=== PATIENT | male | born 1980 | race Caucasian/White ===

== ENCOUNTER 2022-02-03 07:14 | Outpatient (REF) | payer OTHER, SELFPAY ==
[2022-02-03 11:04] LABS: Hematocrit 44.8 % (42.0-52.0); Hemoglobin 15.6 g/dl (14.0-18.0); Mean Corpuscular HGB Conc 34.8 g/dl (31.0-36.0); Mean Corpuscular Hemoglobin 30.3 pg (27.0-33.0); Mean Platelet Volume 9.3 fL (9.4-12.4); Platelet Count 196 X10*3/uL (160-400); Red Blood Count 5.15 X10*6/uL (4.60-5.80); Red Cell Distribution Width 11.7 % (11.0-16.0); White Blood Count 6.3 X10*3/uL (4.8-10.8)
[2022-02-03 11:13] LABS: Estimated Average Glucose 163 mg/dL; Hemoglobin A1c % 7.3 %
[2022-02-03 11:43] LABS: Alanine Aminotransferase 21 U/L (0-40); Albumin Level 4.2 g/dL (3.5-5.0); Alkaline Phosphatase 67 U/L (39-117); Anion Gap 10 (12-20); Aspartate Amino Transferase 18 U/L (5-37); Bilirubin Total 0.7 mg/dL (0.0-1.0); Blood Urea Nitrogen 18 mg/dL (9-16); Calcium 8.7 mg/dL (8.4-10.2); Carbon Dioxide 31 mmol/L (22-29); Chloride 104 mmol/L (96-108); Cholesterol 160 mg/dL; Estimated Glomerular Filt Rate > 60; Glucose Fasting 114 mg/dL (60-99); HDL Cholesterol 43 mg/dL; LDL Cholesterol Calculated 102 mg/dl; Potassium 3.3 mmol/L (3.3-5.1); Sodium 142 mmol/L (135-145); Total Protein 6.6 g/dL (6.5-8.0); Triglycerides 76 mg/dL
[2022-02-03 12:15] LABS: Creatinine Urine 137.17 mg/dL; Microalbum/Creatinine Ratio Ur 4.3 ug/mg cr
== END 2022-02-03 07:15 | disposition home or self-care (01) ==
LOC: HO.WFDLDS 07:14
PROVIDERS: Visit Provider Internal Medicine
DX: Z00.00 Encounter for general adult medical examination without abnormal findings (principal); I10 Essential (primary) hypertension
CPT/HCPCS: 36415; 80053; 80061; 82043; 83036; 85027

== ENCOUNTER 2023-08-18 13:32 | Outpatient (AMB) | payer OTHER, SELFPAY ==
--- NOTE | 2023-08-18 13:33 | A.OFFPC_ITS ---
Vital Signs 08/18/23 13:34 Height 5 ft 11 in Weight 214 lb BMI 29.8 BP 118/74 Blood Pressure Location Rt brachial Position Sitting Pulse 75 Pulse Source Pulse Oximeter Pulse Oximetry (%) 96 Oxygen Delivery Method Room Air Intake Visit Reasons: PE Intake Note: Pt is here today for PE. Allergies No Known Allergies [No Known Allergies*] Allergy (Verified 08/18/23 13:36) Medication List - Last Reconciled 08/18/23 by Jaclyn Shelton MD blood sugar diagnostic As directed insulin lispro subcut olmesartan 5 mg PO DAILY Tobacco use date assessed: 08/18/23 Dental Screening Dental Screen Date: 08/18/23 Did you have a dental visit in the last 12 months?: Yes Did you have a dental problem in the last 6 months where you did not have access to dental care?: No Was dental information given to patient?: Patient has dentist HPI PE HPI Details Pt presents for PE. 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 [facility] Medical History Annual physical exam Glaucoma HTN (hypertension) IDDM (insulin dependent diabetes mellitus) Surgical History No pertinent past surgical history Family History Father No problems noted. Mother Diabetes mellitus Social History Housing: House Alcohol intake: never Patient Tobacco Use Status: Never used Tobacco e-Cigarette/Vaping Use: Never Used service: No Current occupational status: employed Cognitive needs: No Hearing needs: No Vision needs: Yes Questionnaire PHQ-9 Over the last 2 weeks, how often have you been bothered by any of the following problems? 1. Little interest or pleasure in doing things: not at all 2. Feeling down, depressed, or hopeless: not at all 3. Trouble falling or staying asleep, or sleeping too much: not at all 4. Feeling tired or having little energy: not at all 5. Poor appetite or overeating: not at all 6. Feeling bad about yourself - or that you are a failure or have let yourself or your family down: not at all 7. Trouble concentrating on things, such as reading the newspaper or watching television: not at all 8. Moving or speaking so slowly that other people could have noticed. Or the o pposite - being so fidgety or restless that you have been moving around a lot more than usual: not at all 9. Thoughts that you would be better off or of hurting yourself in some way: not at all Total score: 0 Depression Screening Interpretation: Negative Depression Screening Done: Yes Source: Developed by Drs. Freeman Laguerre, Vero Santoro, Murali Alva and colleagues, with an educational denis from [employer] Thrive Questionnaire Date Thrive assessed: 08/18/23 I am a: Patient What is your living situation today?: I have a steady place to live Within the past 12 months, did the food you bought not last and you didn't have the money to get more?: Never true Within the past 12 months, did you worry whether your food would run out before you got money to buy more?: Never true Do you have trouble paying for medicines?: No Do you have trouble getting transportation to medical appointments?: No Do you have trouble paying your heating and electricity bill?: No Do you have trouble taking care of your child, family member or friend?: No Do you have trouble with day-to-day activities such as bathing, preparing meals, shopping, managing finances, etc.?: No Are you currently unemployed and looking for a job?: No Are you interested in more education?: No Please select the resources that you would like help with: None THRIVE Score: 0 AUDIT C Alcohol Use Questionnaire (AUDIT-C) 1. How often do you have a drink containing alcohol?: Never 3. How often do you have six or more drinks on one occasion?: Never Total Score: 0 IND[place]-7 AMB Questionnaire INDIANA-7 Date [place] - 7 assessed: 08/18/23 Feeling nervous, anxious, or on edge: 0 = Not at all Not being able to stop or control worryin = Not at all Worrying too much about different things: 0 = Not at all Trouble relaxin = Not at all Being so restless that it is hard to sit still: 0 = Not at all Becoming easily annoyed or irritable: 0 = Not at all Feeling afraid as if something awful might happen: 0 = Not at all Total [place]-7 score (0-4 normal; 5-9 mild; 10-14 moderate; 15-21 severe): 0 Source: Developed by Drs. Freeman Laguerre, Vero Santoro, Murali Alva and colleagues, with an educational denis from [employer] Review of Systems Const All systems reviewed & are unremarkable except as noted in HPI and below Reports no additional complaints Eyes Reports no additional complaints ENT Reports no additional complaints Card Reports no additional complaints Resp Reports no additional complaints GI Reports no additional complaints Reports no additional complaints Physical exam (Primary Care) Vital Signs: Last Vital Signs Pulse 75 08/18/23 13:34 BP 118/74 08/18/23 13:34 Pulse Ox 96 08/18/23 13:34 Oxygen Delivery Method Room Air 08/18/23 13:34 BMI result Body Mass Index 29.8 Tobacco/Smoking Status: Tobacco use Status Tobacco use date assessed 08/18/23 08/18/23 13:39 Patient Tobacco Use Status Never used Tobacco 08/18/23 13:39 e-Cigarette/Vaping Use Never Used 08/18/23 13:39 PHQ-9: PHQ-9 Score PHQ-9: Total score 0 08/18/23 13:39 Depression Screening Interpretation: Negative Thrive Assessment: Date of Thrive Assessment Date Thrive assessed 08/18/23 08/18/23 13:39 Const General: no acute distress HENMT Head: Yes normal to inspection Ears: hearing grossly normal bilaterally Throat: Yes posterior oropharynx normal Eyes General: appearance normal, both eyes and all related structures Neck Neck: Yes no lymphadenopathy and Yes supple Resp Effort & Inspection: normal respiratory effort Auscultation: clear to auscultation bilaterally Cardio Rhythm: regular rhythm Heart sounds: S1 normal heart sound present and S2 normal heart sound present GI Inspection: Yes normal to inspection Palpation (GI): Soft to palpation Percussion: Yes normal to percussion Auscultation: normal bowel sounds Assessment and Plan Assessment & Plan (1) Shoulder pain, right: Code(s): M25.511 - Pain in right shoulder Plan: For chronic right shoulder pain patient will try physical therapy (2) IDDM (insulin dependent diabetes mellitus): Comment: on Insulin pump f/u dr. Griggs Plan: Follow-up with endocrinology at [facility] (3) HTN (hypertension): Code(s): I10 - Essential (primary) hypertension Plan: Continue olmesartan (4) Annual physical exam: Code(s): Z00.00 - Encounter for general adult medical examination without abnormal findings Plan: Well-balanced diet regular physical activity discussed with the patient he declined colonoscopy Orders: Orders Complete Blood Count Auto Diff 1 Year I10 - Essential (primary) hypertension, Z00.00 - Encounter for general adult medical examination without abnormal findings Hemoglobin A1c 1 Year I10 - Essential (primary) hypertension, Z00.00 - Encounter for general adult medical examination without abnormal findings PT Evaluation and Treatment Today M25.511 - Pain in right shoulder Comprehensive [place]. Panel Fast 1 Year I10 - Essential (primary) hypertension, Z00.00 - Encounter for general adult medical examination without abnormal findings Lipid Panel 1 Year I10 - Essential (primary) hypertension, Z00.00 - Encounter for general adult medical examination without abnormal findings Microalbumin, Random (w Creat) 1 Year I10 - Essential (primary) hypertension, Z00.00 - Encounter for general adult medical examination without abnormal findings UA CC w/rflx Micro + Cult 1 Year I10 - Essential (primary) hypertension, Z00.00 - Encounter for general adult medical examination without abnormal findings Coding Level of Care Code Est Pt Prev Care 40-64y(75672) Diagnoses Shoulder pain, right M25.511 IDDM (insulin dependent diabetes mellitus) HTN (hypertension) I10 Annual physical exam Z00.00
[2023-08-18 13:34] VITALS: BP 118/74; PULSE 75; O2SAT 96; BMI 29.8
== END 2023-08-18 14:34 | disposition home or self-care (01) ==
PROVIDERS: PCP Internal Medicine; Visit Provider Internal Medicine
DX: M25.511 Pain in right shoulder (principal); I10 Essential (primary) hypertension; Z00.00 Encounter for general adult medical examination without abnormal findings
CPT/HCPCS: 99396

== ENCOUNTER 2023-11-02 07:03 | Outpatient (RCR) | payer OTHER, SELFPAY ==
--- NOTE | 2023-10-12 08:18 | MHC.PT.EP ---
[facility] [place] Office [place] Office [place] Office [address] Leatha Banegas [address] [phone] F: [phone] F: [phone] F: [phone] F: [phone] Physical Therapy Plan of Care Date of Evaluation: 10/12/23 Date of Surgery: NA Diagnosis: R SHOULDER PAIN Assessment: Pt IS 43 YO M REFERRED TO PT FROM DR SEWELL WITH R SHLDER PAIN. Pt REPROTS 7-8 MONTH HX OF INSIDIOUS ONSET. 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 PRESENTS WITH POOR POSTURE, TIGHT PEC MMS, TTP R AC JT. SLIGHT DECREASE IN END ROM R SHLDER AND SLIGHT DECREASE IN R SHLDER MM STRENGTH. HAS NEVER HAD PT. SHOULD BENEFIT FROM PT TO HELP ADDRESS THESE ISSUES Frequency and Duration: The patient will be seen 2X/WK X 6 WKS Short Term Goals: 1. INCREASED POSTURE AWARENESS AND AWARENESS OF SHLDER CARE 2. 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 DECREASED R SHLDER PAIN AT LEAST 50% WITH ADLS 2. IMPROVED SPADI (60/130 SOC) Treatment Plan: Modalities to reduce pain, spasms and effusion. Manual therapy to restore motion and function. Therapeutic exercise to improve strength and flexibility. Neuromuscular re-education for posture and balance. Therapeutic activities to return to functional activities of daily living. Electronically signed by: ALTON TINOCO PT Please sign and return to therapist. Thank you for your referral.
--- NOTE | 2023-11-09 07:30 | MHC.PT.DC ---
[facility] [place] Office [place] Office [place] Office [address] Leatha Banegas [address] [phone] F: [phone] F: [phone] F: [phone] F: [phone] Physical Therapy Discharge Report Diagnosis: R SHOULDER PAIN Date of Surgery: NA Date of Evaluation: 10/12/23 Date of Discharge: 11/09/23 Treatments to Date: 5 Cancellations to Date: No Shows to Date: Discharge Status: Achieved Goals Improved Function Independent with HEP Discharge Summary: PER ASSESSMENT FROM LAST SESSION ON 11/02/23 HAS MET PT GOALS, HAS I HOME PROGRAM WILL SCHEDULE 1 APPT FOR NEXT WEEK. WILL CALL TO CX IF SHOULDER CONTINUES TO FEEL WELL' Pt CAME TO APPT ON 11/08 (MISUNDERSTOOD TO CALL TO CX IF SHLDER CONTINUES TO FEEL WELL). REPORTS SHOULDER CONTINUES TO FEEL WELL. OFFERED ONE LAST REV OF EXS VS CX.. WILL DC. RE-ED CONTINUATION OF EX (MAYBE TB VS PRONE) Electronically signed by: ALTON TINOCO PT Please sign and return to therapist. Thank you for your referral.
== END 2023-11-09 07:31 | disposition home or self-care (01) ==
LOC: HO.PTWFD 07:03
PROVIDERS: PCP Internal Medicine; Visit Provider Internal Medicine
DX: M25.511 Pain in right shoulder (principal)
CPT/HCPCS: 97110; 97140; 97161; 97535

== ENCOUNTER 2024-10-23 09:34 | Outpatient (AMB) | payer OTHER, SELFPAY ==
--- NOTE | 2024-10-23 09:46 | MHC.PC.OV ---
Vital Signs 10/23/24 09:47 Height 5 ft 11 in Weight 222 lb BMI 31.0 BP 120/74 Blood Pressure Location Lt brachial Position Sitting Respiration 18 Pulse 73 Pulse Source Pulse Oximeter Temp 98.7 F Temp Source Oral Pulse Oximetry (%) 97 Oxygen Delivery Method Room Air Intake Visit Reasons: Request a PE Intake Note: Pt is here today for PE. Allergies No Known Allergies (No Known Allergies*) Allergy (Verified 10/23/24 09:52) Medication List - Last Reconciled 10/23/24 by Jaclyn Shelton MD blood sugar diagnostic As directed insulin lispro subcut olmesartan 5 mg PO DAILY Tobacco use date assessed: 10/23/24 Dental Screening Dental Screen Date: 10/23/24 Did you have a dental visit in the last 12 months?: Yes Did you have a dental problem in the last 6 months where you did not have access to dental care?: No Was dental information given to patient?: Patient has dentist HPI Request a PE HPI Details Patient presents for physical [facility] Medical History Annual physical exam Glaucoma HTN (hypertension) IDDM (insulin dependent diabetes mellitus) Surgical History No pertinent past surgical history Family History Father No problems noted. Mother Diabetes mellitus Social History Housing: House Alcohol intake: never Patient Tobacco Use Status: Never used Tobacco e-Cigarette/Vaping Use: Never Used service: No Current occupational status: employed Cognitive needs: No Hearing needs: No Vision needs: Yes Questionnaire PHQ-9 Over the last 2 weeks, how often have you been bothered by any of the following problems? 1. Little interest or pleasure in doing things: not at all 2. Feeling down, depressed, or hopeless: not at all 3. Trouble falling or staying asleep, or sleeping too much: not at all 4. Feeling tired or having little energy: not at all 5. Poor appetite or overeating: not at all 6. Feeling bad about yourself - or that you are a failure or have let yourself or your family down: not at all 7. Trouble concentrating on things, such as reading the newspaper or watching television: not at all 8. Moving or speaking so slowly that other people could have noticed. Or the opposite - being so fidgety or restless that you have been moving around a lot more than usual: not at all 9. Thoughts that you would be better off or of hurting yourself in some way: not at all Total score: 0 Depression Screening Interpretation: Negative Depression Screening Done: Yes 65483 - PHQ-9 Billing: Yes Source: Developed by Drs. Freeman Laguerre, Vero Santoro, Murali Alva and colleagues, with an educational denis from [employer]. Thrive Questionnaire Date Thrive assessed: 10/23/24 I am a: Patient What is your living situation today?: I have a steady place to live Within the past 12 months, did the food you bought not last and you didn't have the money to get more?: Never true Within the past 12 months, did you worry whether your food would run out before you got money to buy more?: Never true Do you have trouble paying for medicines?: No Do you have trouble getting transportation to medical appointments?: No Do you have trouble paying your heating and electricity bill?: No Do you have trouble taking care of your child, family member or friend?: No Do you have trouble with day-to-day activities such as bathing, preparing meals, shopping, managing finances, etc.?: No Are you currently unemployed and looking for a job?: No Are you interested in more education?: No Please select the resources that you would like help with: None THRIVE Score: 0 INDIA[place]-7 AMB Questionnaire INDIA[place]-7 Date [place] - 7 assessed: 10/23/24 Feeling nervous, anxious, or on edge: 0 = Not at all Not being able to stop or control worryin = Not at all Worrying too much about different things: 0 = Not at all Trouble relaxin = Not at all Being so restless that it is hard to sit still: 0 = Not at all Becoming easily annoyed or irritable: 0 = Not at all Feeling afraid as if something awful might happen: 0 = Not at all Total [place]-7 score (0-4 normal; 5-9 mild; 10-14 moderate; 15-21 severe): 0 Source: Developed by Drs. Freeman Laguerre, Vero Santoro, Murali Alva and colleagues, with an educational denis from [employer]. [place]-7 Assessment Billing [place]-7 Assessment Tool: [place]-7 Assessment 14662 Review of Systems Const All systems reviewed & are unremarkable except as noted in HPI and below Eyes Reports no additional complaints ENT Reports no additional complaints Card Reports no additional complaints Resp Reports no additional complaints GI Reports no additional complaints Reports no additional complaints Physical exam (Primary Care) Vital Signs: Last Vital Signs Temp 98.7 F 10/23/24 09:47 Pulse 73 10/23/24 09:47 Resp 18 10/23/24 09:47 BP 120/74 10/23/24 09:47 Pulse Ox 97 10/23/24 09:47 Oxygen Delivery Method Room Air 10/23/24 09:47 BMI result Body Mass Index 31.0 Tobacco/Smoking Status: Tobacco use Status Tobacco use date assessed 10/23/24 10/23/24 09:55 Patient Tobacco Use Status Never used Tobacco 10/23/24 09:47 e-Cigarette/Vaping Use Never Used 10/23/24 09:47 PHQ-9: PHQ-9 Score PHQ-9: Total score 0 10/23/24 10:03 Depression Screening Interpretation: Negative Thrive Assessment: Date of Thrive Assessment Date Thrive assessed 10/23/24 10/23/24 09:55 Const General: no acute distress HENMT Head: Yes normal to inspection General nose exam: Normal external nose present Mouth: Normal oral and palatal mucosa present Throat: Yes posterior oropharynx normal Eyes General: appearance normal, both eyes and all related structures Neck Neck: Yes no lymphadenopathy and Yes supple Resp Effort & Inspection: normal respiratory effort Auscultation: clear to auscultation bilaterally Cardio Rhythm: regular rhythm Heart sounds: S1 normal heart sound present and S2 normal heart sound present GI Inspection: Yes normal to inspection Palpation (GI): Soft to palpation Percussion: Yes normal to percussion Auscultation: normal bowel sounds Coding Level of Care Code Est Pt Prev Care 40-64y(28203) Diagnoses HTN (hypertension) I10 IDDM (insulin dependent diabetes mellitus) Annual physical exam Z00.00 Additional Codes IND[place]-7 Assessment Billing - [place]-7 Assessment Tool: [place]-7 Assessment 11596 ([id number]) PHQ-9 - 76610 - PHQ-9 Billing: Yes ([id number]) Assessment & Plan Assessment & Plan (1) HTN (hypertension): Code(s): I10 - Essential (primary) hypertension Category: Medical Plan: Continue olmesartan (2) IDDM (insulin dependent diabetes mellitus): Comment: on Insulin pump f/u dr. Griggs Category: Medical Plan: A1c was 6.6. Follow-up with endocrinology continue current treatment and management. 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 He declined colonoscopy Cologuard is ordered Orders: Referrals Cologuard Test Z12.11 - Encounter for screening for malignant neoplasm of colon, Z12.12 - Encounter for screening for malignant neoplasm of rectum Medications: Refilled olmesartan 5 mg PO DAILY 90 tabs 3RF
[2024-10-23 09:47] VITALS: BP 120/74; PULSE 73; RESP 18; TEMP 37.1; O2SAT 97; BMI 31.0
--- OUTSIDE RECORDS SUMMARY | 2024-10-23 12:11 | XMS_ITS | Clinical Summary ---
Author Organization [facility] Address [address] [place] [phone] Phone Care Team Providers Care Hardboard Grinder Name Role Phone Jaclyn Shelton MD Primary Care Provider [phone] Allergies No known active allergies Medications olmesartan (BENICAR) 5 mg tablet Take 1 tablet by mouth every morning. 04/27/19 23 Active GUARDIAN SENSOR 3 DeviIndications: Type 1 diabetes mellitus without complication 1 each by Miscellaneous route every 7 days. 13 each 3 12/03/19 Active infusion set for insulin pump ISetIndications: Type 1 diabetes mellitus without complication 1 each by Miscellaneous route every third day. 30 each 3 12/03/19 23 Active insulin pump syringe 3 mL MiscIndications: Type 1 diabetes mellitus without complication by Miscellaneous route every third day. 30 each 3 12/03/19 23 Active SKIN PREP WIPES MiscIndications: Type 1 diabetes mellitus without complication To prep insulin infusion site and glucose sensor sites every 3 days 100 each 3 12/03/19 23 Active ketoconazole 2 % creamIndications :Type 1 diabetes mellitus without complication Apply topically daily. Apply to both feet daily 60 g 1 05/03/19 25 Active HUMALOG U-100 INSULIN 100 unit/mL injection vialIndications: Type 1 diabetes mellitus without complication Use 66 units daily subcutaneously continuously via insulin pump 70 mL 3 09/13/19 25 Active ACCU-CHEK GUIDE TEST STRIPS Strp strips Use daily as needed to recheck CGM reading 100 strip 3 09/13/19 25 Active lancets 28 gauge MiscIndications: Type 1 diabetes mellitus without complication 1 each by Miscellaneous route daily. 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 Daughter diagnosed with type I at age 9 and son diagnosed with type I at age 17 Assessment & Plan (09/12/2024 9:18 AM EDT): Good control by last A1c of 6.5% in 04/2024. Recent control is suboptimal by sensor download with 64% in target, 25% high and 9% over 250 and 2% low. No severe hypoglycemia. Hyperglycemia usually related to carbohydrate intake. Patient admits that at times tends to underestimate his carb intake. He is current insulin to carb ratio for breakfast is 1: 7 and for lunch and dinner is 1: 10. He has slightly decreased vibratory sensation on his feet without any symptoms. B12 level and CBC is not available. His urine microalbumin creatinine ratio was normal and lipids at target in 04/2024. Up-to-date with eye exam, report from 01/2024 reviewed, no diabetic retinopathy. Some lipo hypertrophy on abdominal infusion sites. -Discussed increasing meal boluses with lunch and dinner by changing the insulin to carb ratio to 1: 8 or 1: 9. -Continue to work on accuracy of carb counting -Check labs today including B12 level and CBC -Discussed importance to rotate infusion sites Assessment & Plan (05/02/2024 8:41 AM EDT): Control is good based upon the patient's insulin pump and sensor download. No frequent or severe hypoglycemia. He is having some post prandial glucose spikes after dinner. Discussed adjusting his carb ratio at dinner but he would rather leave it as to help prevent going low over night. Will maintain his current pump settings. Continue to work on eating healthy and being active. To call or message with any issues managing his glucose levels. Up to date with [facility]. He has been dealing with athlete's feet for the last couple of weeks, will send a prescription to treat. Labs ordered today Assessment & Plan (02/11/2024 6:31 PM EST): Has been using automated insulin delivery with MiniMed 780G/Guardian CGM since 10/2023. Improved control by CGM download. No frequent or severe hypoglycemia. Average glucose 164, GMI 7.2. Spent 60% of the day in target range. Postprandial highs after lunch and dinner while using insulin carb ratio 1:10 with these meals. Breakfast insulin to carb ratio is 1:7. No long-term complications -Increase meal bolus at lunch and dinner by using an insulin to carb ratio 127. -If having hypoglycemia within 2 to 3 hours after lunch/dinner, he may change the insulin to carb ratio to 1-8 or 1-9 -Fasting labs end of February. -Follow-up in 3 to 4 months with [facility] and 6 to 7 months with sd Assessment & Plan (11/29/2023 8:46 AM EDT): Control is improving/good based upon the patient's insulin pump and sensor download. No frequent or severe hypoglycemia. He is having some lows during the over night period, will lower his 12 am basal rate to 0.9 units per hour to help prevent the lows. He is very happy with his new insulin pump and how it is working. Continue to work on eating healthy and being active. To call or message with any issues managing his glucose levels. Up to date with [facility]. Scheduled to see in January. Labs ordered today Assessment & Plan (07/31/2023 10:18 PM EDT): Suboptimal control by MiniMed 670 G and Guardian CGM download. Last A1c higher at 7.7% in 04/2023. Blood sugars are going up between 3 AM to 6 AM and has postprandial spikes especially mid afternoon and after dinner while using insulin to carb ratio 1:10 at lunch and dinner. Patient is usually entering less carbs than what he eats because of fear of hypoglycemia at work. Suggested to increase 3 AM to 6 AM basal by 0.1 unit/h. Discussed the importance of entering the actual carbohydrate he eats and bolus for it. If he is having low blood sugars within 2 to 3 hours after lunch or dinner he may change the insulin to carb ratio to 1-12 or 1-13 from current 1-10. Patient will need a new pump since current pump is cracked. His insurance covers both MiniMed and tandem. He had problem with current supplier [employer] to facilitate the switch to tandem. He will call [employer] again with his choice of pump and we will send prescription. He is more used to the MiniMed platform so he may upgrade to their newest 780 G pump with Guardian 4 CGM Assessment & Plan (04/25/2023 2:38 PM EDT): Control is reasonable based upon the patient's insulin pump and sensor download. No frequent or severe hypoglycemia. His glucose levels have been spiking after lunch and dinner discussed changing his insulin to carb ratio at 11 am to 1:8 from 1:10 to help with the post prandial spikes. Dicussed differences between the medtronic pump and the tandem insulin pump as he is getting ready to up grade his pump. He is thinking he is going to work on changing his pump and sensor from medtronic to tandem and dexcom. Continue to work on eating healthy and being active. To call or message with any issues managing his glucose levels. Up to date with [facility]. Labs ordered today Assessment & Plan (01/19/2023 9:09 AM EST): Suboptimal control by CGM download. Average glucose 180. Reports some hypoglycemia overnight. Does get sharp decline in his blood sugars within 2 to 3 hours postprandially while using insulin to carb ratio of 129 during the day and at night. No severe hypoglycemia. Having issues to get supplies of pump and sensor after insurance changed to [employer]. He would need to use [email or web address] as a supplier and considering to change his MiniMed pump to either OmniPod or t:slim. He will let us know which pump to send prescription on and will set up training. Suggested to decrease medial bolus by changing the insulin to carb ratio to 1-10 or 1-11 between 11 AM -midnight. Labs today. Will communicate through [place]. Reviewed symptoms, prevention and treatment of hypoglycemia. Call if blood sugars below 70 or over 250-300 sustained. Assessment & Plan (07/13/2022 10:12 AM EDT): Control is reasonable based upon the patient's recent A1C of 7.8%, and his insulin pump and sensor downloads. No frequent or severe hypoglycemia. Discussed upgrading his insulin pump from the 670G to the 780G and guardian 4 sensors. He is going to look into this. Will go to the website to start the process. Will maintain his current settings as control is overall doing well. Continue to work on eating healthy and being active. To call or message with any issues managing his glucose levels. Up to date with [facility]. Insulin pump in place 07/13/2022 Assessment & Plan (09/12/2024 9:18 AM EDT): On MiniMed 7 80G with Guardian 4 sensor. Getting supplies from [facility] Assessment & Plan (05/02/2024 8:40 AM EDT): Using the medtronic 780 insulin pump and guardian 4 sensor, he is getting supplies from [employer] Assessment & Plan (01/18/2024 9:50 AM EST): Patient changed his supplier to [facility]. Assessment & Plan (11/29/2023 8:45 AM EDT): Using the medtronic 780 insulin pump and guardian 4 sensor, he is getting supplies from [employer] Assessment & Plan (04/25/2023 2:31 PM EDT): He is considering switching his insulin pump to the tandem insulin pump from the medtronic pump. He does not want to use the omnipod pump Assessment & Plan (01/19/2023 9:09 AM EST): Current insurance does not deal with [employer] work he is current supplier is. He will need to use [facility]. Assessment & Plan (07/13/2022 10:07 AM EDT): The patient is using the medtroniv 670G insulin pump and guardian 3 sensors, he is getting his supplies from [employer] Encounters Date Type Department Care Team Description 09/12/2024 9:04 AM EDT - 09/12/2024 11:59 PM EDT Hospital Encounter [facility] [address] [place] [address] Destiny Mejía MD Discharge Disposition: Home or Self Care 09/12/2024 8:40 AM EDT Office Visit [facility] [address] [place] [address] Destiny Mejía MD Type 1 diabetes mellitus without complication (Primary Dx); Insulin pump in place; 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 Not on steph e 07/06/2022 Are you concerned about learning? Not on file 07/06/2022 No 07/06/2022 No 07/06/2022 Digital Access Answer Date Recorded No 07/06/2022 No 07/06/2022 Reliable internet access at home? Not on file 07/06/2022 Device with a working camera? Not on file Sex and Gender Information Value Date Recorded Sex Assigned at Not on file Legal Sex Male 9:05 AM EDT Gender Identity Not on file Sexual Orientation Not on file Last Filed Vital Signs Vital Sign Reading Time Taken Comments Blood Pressure 116/76 09/12/2024 8:34 AM EDT Pulse 71 09/12/2024 8:34 AM EDT Temperature 36.4 C (97.5 F) 04/22/2023 7:59 AM EDT Respiratory Rate - - Oxygen Saturation 98% 09/12/2024 8:34 AM EDT Inhaled Oxygen Concentration - - Weight 101.2 kg (223 lb 3.2 oz) 09/12/2024 8:34 AM EDT Height 180.3 cm (5' 10.98 ) 09/12/2024 8:34 AM E DT Body Mass Index 31.14 09/12/2024 8:34 AM EDT Plan of Treatment Upcoming Encounters Date Type Department Care Team (Late st Contact Info) Description 12/12/2024 8:00 AM EST Office Visit [facility] [address] [place] [address] [place] [address] Agatha Elliott PA-C [address] [place] [phone] 03/19/2025 8:20 AM EST Office Visit [facility] [address] [place] [address] [place] [address] Destiny Mejía MD [address] [place] [phone] [email or web address] Health Maintenance Due Date Last Done Comments Adult Td,Tdap Booster 1978 DEPRESSION SCREENING 1990 HEPATITIS C SCREENING 1996 HIV ONE-TIME SCREENING (18-65 YEARS) 1996 PNEUMOCOCCAL VACCINES (0-49 years) (1 of 2 - PCV) 1997 DIABETIC EYE EXAM 07/13/2022 COLOGUARD 09/05/2023 COLONOSCOPY 09/05/2023 COLORECTAL CANCER SCREENING 09/05/2023 FIT TEST 09/05/2023 FOBT 09/05/2023 SIGMOIDOSCOPY 09/05/2023 VIRTUAL COLONOSCOPY 09/05/2023 INFLUENZA VACCINE (#1) 2024 COVID-19 VACCINE (1 - season) 2024 BLOOD PRESSURE 03/15/2025 09/12/2024 HEMOGLOBIN A1C 03/15/2025 09/12/2024, 04/08, 11/29/2023, Additional history exists CREATININE LEVEL 09/12/2025 09/12/2024, , 11/29/2023, Additional history exists LIPID PANEL 09/12/2025 09/12/2024, 04/08, 01/19/2023 POTASSIUM LEVEL 09/12/2025 09/12/2024, 04/08, 11/29/2023, Additional history exists SMOKING STATUS SCREENING (Once After 26 Yrs) Completed 09/12/2024 HEPATITIS A VACCINES Aged Out No long er eligible based on patient's age to complete this topic HIB VACCINES Aged Out No longer eligi ble based on patient's age to complete this topic MENINGOCOCCAL VACCINES (ACWY) Aged Out No longer eligible based on patient's age to complete this topic MENINGOCOCCAL VACCINES (B) Aged Out N o longer eligible based on patient's age to complete this topic Medical Devices Not on file Procedures Procedure Name Priority Date/Time Associated Diagnosis Comments MICROALBUMIN/CREATINI NE RATIO, RANDOM URINE Routine 09/12/2024 9:13 AM EDT Type 1 diabetes mellitus without complication VITAMIN B12 Routine 09/12/2024 9:06 AM EDT Type 1 diabetes mellitus without complication CBC Routine 09/12/2024 9:06 AM EDT Type 1 diabetes mellitus without complication HEMOGLOBIN A1C Routine 09/12/2024 9:06 AM EDT Type 1 diabetes mellitus without complication COMPREHENSIVE METABOLIC PANEL Routine 09/12/2024 9:06 AM EDT Type 1 diabetes mellitus without complication LIPID PANEL Routine 09/12/2024 9:06 AM EDT Type 1 diabetes mellitus without complication TSH WITH REFLEX Routine 09/12/2024 9:06 AM EDT Type 1 diabetes mellitus without complication from Last 3 Months Results * Microalbumin/creatinine ratio, random urine (09/12/2024 9:13 AM EDT) URINE MICROALBUMIN <1.2 0 - 2.3 mg/dL [facility] URINE CREATININE 215 mg/dL [facility] MICROALB/CRE RATIO NOT CALCULATED 0 - 20 mg/g Cre [facility] Comment:due to Microalbumin <1.2 Urine (Urine) 09/12/2024 9:1 3 AM EDT 09/12/2024 9:18 AM EDT us Destiny Mejía MD URINE ORDERABLES Final Result Performing Organization Address City/[facility]/ZIP Co de Phone Number [address] [address] * (ABNORMAL) Comprehensive metabolic panel (09/12/2024 9:06 AM EDT) SODIUM 144 133 - 146 mmol/L [facility] POTASSIUM 4.9 3.3 - 5.1 mmol/L [facility] CHLORIDE 106 96 - 108 mmol/L [facility] CO2 27 21 - 35 mmol/L [facility] BUN 19 6 - 19 mg/dL [facility] CREATININE 0.80 0.5 - 1.5 mg/dL [facility] GLUCOSE 188(H) 70 - 99 mg/dL [facility] ALBUMIN 4.1 3.9 - 4.8 g/dL [facility] TOTAL PROTEIN 6.8 6.5 - 8.0 g/dL [facility] CALCIUM 8.7 8.4 - 10.3 mg/dL [facility] ALKALINE PHOSPHATASE 67 39 - 117 U/L [facility] TOTAL BILIRUBIN 0.7 0.0 - 1.2 mg/dL [facility] AST 24 0 - 37 U/L [facility] ALT 24 0 - 40 U/L [facility] GLOBULIN 2.7 1 - 4.8 g/dL [facility] EGFR 111 >59 mL/min/1.7 3m2 [facility] Comment:Estimated glomerular filtration rate calculated using the CKD-EPI refit equation. ANION GAP 16 10 - 20 mmol/L [facility] Blood 09/12/2024 9:06 AM EDT 09/12/2024 9:12 AM EDT us Destiny Mejía MD LAB BLOOD ORDERABLES Final Res ult Performing Organization Address City/[facility]/ZIP Co de Phone Number [address] [address] * TSH with reflex (09/12/2024 9:06 AM EDT) TSH 0.78 0.27 - 4.20 uIU/mL [facility] Blood 09/12/2024 9:06 AM EDT 09/12/2024 9:12 AM EDT us Destiny Mejía MD LAB BLOOD ORDERABLES Final Res ult Performing Organization Address City/[facility]/ZIP Co de Phone Number [address] [phone] * CBC (09/12/2024 9:06 AM EDT) WBC 5.09 4.00 - 11.00 K/uL [facility] RBC 4.93 4.50 - 5.90 M/uL [facility] HGB 14.7 13.5 - 17.5 g/dL [facility] HCT 43.2 41.0 - 53.0 % [facility] PLT 173 150 - 450 K/uL [facility] MCV 87.6 80.0 - 100.0 fL [facility] MCH 29.8 27.0 - 31.0 pg [facility] MCHC 34.0 32.0 - 36.0 g/dL [facility] RDW 11.6 11.5 - 14.5 % [facility] MPV 9.3 8.4 - 12.0 fL [facility] NRBC 0.00 0.00 /100 WBCs [facility] ABSOLUTE NRBC 0.00 0.00 K/uL [facility] Blood 09/12/2024 9:06 AM EDT 09/12/2024 9:12 AM EDT us Destiny Mejía MD LAB BLOOD ORDERABLES Final Res ult Performing Organization Address [facility]/ZIP Co de Phone Number [address] [address] * (ABNORMAL) Hemoglobin A1c (09/12/2024 9:06 AM EDT) HEMOGLOBIN A1C 6.8(H) 4.3 - 5.8 % [facility] Blood 09/12/2024 9:06 AM EDT 09/12/2024 9:12 AM EDT us Destiny Mejía MD LAB BLOOD ORDERABLES Final Res ult Performing Organization Address City/[facility]/ZIP Co de Phone Number [address] [address] * Vitamin B12 (09/12/2024 9:06 AM EDT) VITAMIN B12 618 232 - 1,245 pg/mL [facility] Blood 09/12/2024 9:06 AM EDT 09/12/2024 9:12 AM EDT us Destiny Mejía MD LAB BLOOD ORDERABLES Final Res ult Performing Organization Address City/[facility] Co de Phone Number [address] [phone] * (ABNORMAL) Lipid panel (09/12/2024 9:06 AM EDT) HDL 49 mg/dL [facility] Comment: Interpretation <40 mg/dL: Low HDL cholesterol (major risk factor for CHD) Greater than or equal to 60 mg/dL: High HDL cholesterol ( negative risk factor for CHD) HDL - cholesterol is affected by a number of factors, e.g. smoking, excerise, hormones, sex and age. CHOLESTEROL 159 0 - 240 mg/dL [facility] TRIGLYCERIDES 73 30 - 160 mg/dL [facility] LDL 95 50 - 129 mg/dL [facility] Comment: LDL levels in terms of risk for coronary heart disease: <100 mg/dL: Optimal 100-129 mg/dL: Near or above optimal 130-159 mg/dL: Borderline high 160-189 mg/dL: High >190 mg/dL: Very High CARDIAC RISK RATIO 3.2(L) 3.4 - 5.0 C [facility] Blood 09/12/2024 9:06 AM EDT 09/12/2024 9:12 AM EDT us Destiny Mejía MD LAB BLOOD ORDERABLES Final Res ult [address] [phone] from Last 3 Months Insurance [facility] [employer] DIRECT [facility] [employer] DIRECT Care Teams Hardboard Grinder Relationship Specialty Start Date End Date Jaclyn Shelton MD [address] [place] [id number] PCP - General Internal Medicine 07/13/22 Additional Source Comments The information contained in this document represents components of the legal health record. It is not the complete legal health record.[facility]
== END 2024-10-23 10:09 | disposition home or self-care (01) ==
PROVIDERS: PCP Internal Medicine; Visit Provider Internal Medicine
DX: I10 Essential (primary) hypertension (principal); Z00.00 Encounter for general adult medical examination without abnormal findings

== ENCOUNTER → 2024-10-23 09:34 | Outpatient (BNVA) | payer OTHER, SELFPAY | PROVIDERS: PCP Internal Medicine; Visit Provider Internal Medicine | DX: Z00.00 Encounter for general adult medical examination without abnormal findings (principal); I10 Essential (primary) hypertension | CPT/HCPCS: 96127; 99396 ==